=== PATIENT | female | born 1985 | race American Indian/Alaskan Native ===

== ENCOUNTER 2017-05-25 20:39 | Emergency (ER) | payer SELFPAY ==
--- NOTE | 2017-05-25 21:51 | XRay Report ---
FINAL REPORT PROCEDURE: XR CHEST ROUTINE 2V TECHNIQUE: PA and lateral chest radiographs were obtained. CPT 53168 HISTORY: cough COMPARISON: No prior studies are available for comparison. FINDINGS: Heart: Normal. Mediastinum/Vessels: Normal. Lungs/Pleural space: Normal. Bony thorax: No acute osseous abnormality. Other: IMPRESSION: Normal examination.
[2017-05-26] MEDS ORDERED: TESSALON PERLES PO ONE (02:03)
[2017-05-26] MEDS ORDERED: MOTRIN PO ONE (02:03)
[2017-05-26] MEDS ORDERED: ZESTRIL PO ONE (02:51)
[2017-05-26 02:53] VITALS: BP 152/91
--- NOTE | 2017-05-26 02:55 | Emergency Department Report ---
- General Chief Complaint: Upper Respiratory Infection Stated Complaint: COLD SX Time Seen by Provider: 05/26/17 02:02 Source: patient Mode of arrival: Ambulatory Limitations: No Limitations - History of Present Illness Initial Comments: This is a 31-year-old female nontoxic, well nourished in appearance, no acute signs of distress presents to the ED with c/o of productive cough, body aches, rhinorrhea, nasal congestion x3 days. Patient describes productive cough as yellow mucus production. Patient denies any sick contacts. Patient denies any recent travels, long car, recent hospital stays. Patient denies any calf pain or calf tenderness. Patient denies any chest pain, short of breath, fever, chills, nausea, vomiting, hemoptysis, numbness, tingling, headache or stiff neck. Patient denies any drug allergies. Patient denies any allergies. PMH includes HTN but patient stated takes Lisinopril 10 mg but missed dose today as she is out of her medication. MD Complaint: cough, rhinorrhea, nasal congestion, other (body aches) -: days(s) (3) Severity: mild Severity scale (0 -10): 8 Quality: aching Consistency: constant Improves With: nothing Worsens With: nothing Associated Symptoms: rhinorrhea, nasal congestion, cough. denies: fever, chills , myalgias, diaphoresis, headache, sore throat, stiff neck, chest pain, shortness of breath, abdominal pain, nausea, vomiting, diarrhea, dysuria, rash, confusion, right sweats, weight loss, epistaxis, hoarseness, ear pain Treatments Prior to Arrival: none - Related Data Previous Rx's Medication Instructions Recorded Last Taken Type Ranitidine HCl [Zantac] 300 mg PO QDAY #30 tablet 02/02/14 Unknown Rx Cephalexin [Keflex] 500 mg PO QID #40 capsule 02/19/17 Unknown Rx traMADol [Ultram 50 MG tab] 50 mg PO Q8HR PRN #20 tablet 02/19/17 Unknown Rx Azithromycin [Zithromax Z-GABY] 250 mg PO DAILY #6 tablet 05/26/17 Unknown Rx Benzonatate [Tessalon Perle] 100 mg PO Q6H PRN #20 capsule 05/26/17 Unknown Rx Ibuprofen [Motrin] 600 mg PO Q8H PRN #30 tablet 05/26/17 Unknown Rx Oseltamivir [Tamiflu] 75 mg PO BID #14 cap 05/26/17 Unknown Rx Allergies Allergy/AdvReac Type Severity Reaction Status Date / Time No Known Allergies Allergy Verified 02/19/17 10:54 ED Review of Systems ROS: Stated complaint: COLD SX Other details as noted in HPI Constitutional: denies: chills, fever Eyes: denies: eye pain, eye discharge, vision change ENT: denies: ear pain, throat pain Respiratory: cough. denies: shortness of breath, wheezing Cardiovascular: denies: chest pain, palpitations Endocrine: no symptoms reported Gastrointestinal: denies: abdominal pain, nausea, diarrhea Genitourinary: denies: urgency, dysuria, discharge Musculoskeletal: denies: back pain, joint swelling, arthralgia Skin: denies: rash, lesions Neurological: denies: headache, weakness, paresthesias Psychiatric: denies: anxiety, depression Hematological/Lymphatic: denies: easy bleeding, easy bruising ED Past Medical Hx - Past Medical History Previous Medical History?: Yes Hx Diabetes: Yes - Surgical History Past Surgical History?: Yes Additional Surgical History: stomach surgery when she was a baby - Social History Smoking Status: Current Every Day Smoker Substance Use Type: None - Medications Home Medications: Home Medications Medication Instructions Recorded Confirmed Last Taken Type Ranitidine HCl [Zantac] 300 mg PO QDAY #30 tablet 02/02/14 Unknown Rx Cephalexin [Keflex] 500 mg PO QID #40 capsule 02/19/17 Unknown Rx traMADol [Ultram 50 MG tab] 50 mg PO Q8HR PRN #20 tablet 02/19/17 Unknown Rx Azithromycin [Zithromax Z-GABY] 250 mg PO DAILY #6 tablet 05/26/17 Unknown Rx Benzonatate [Tessalon Perle] 100 mg PO Q6H PRN #20 capsule 05/26/17 Unknown Rx Ibuprofen [Motrin] 600 mg PO Q8H PRN #30 tablet 05/26/17 Unknown Rx Oseltamivir [Tamiflu] 75 mg PO BID #14 cap 05/26/17 Unknown Rx ED Physical Exam - General Limitations: No Limitations General appearance: alert, in no apparent distress - Head Head exam: Present: atraumatic, normocephalic - Eye Eye exam: Present: normal appearance, PERRL, EOMI Pupils: Present: normal accommodation - ENT ENT exam: Present: normal exam, normal orophraynx, mucous membranes moist, TM's normal bilaterally, normal external ear exam - Neck Neck exam: Present: normal inspection, full ROM. Absent: tenderness, meningismus, lymphadenopathy, thyromegaly - Respiratory Respiratory exam: Present: normal lung sounds bilaterally. Absent: respiratory distress, wheezes, rales, rhonchi, stridor, chest wall tenderness, accessory muscle use, decreased breath sounds, prolonged expiratory - Cardiovascular Cardiovascular Exam: Present: regular rate, normal rhythm, normal heart sounds. Absent: irregular rhythm, systolic murmur, diastolic murmur, rubs, gallop - GI/Abdominal GI/Abdominal exam: Present: soft, normal bowel sounds. Absent: distended, tenderness, guarding, rebound, rigid, diminished bowel sounds - Rectal Rectal exam: Present: deferred - Extremities Exam Extremities exam: Present: normal inspection, full ROM, normal capillary refill. Absent: tenderness, pedal edema, joint swelling, calf tenderness - Back Exam Back exam: Present: normal inspection, full ROM. Absent: tenderness, CVA tenderness (R), CVA tenderness (L), muscle spasm, paraspinal tenderness, vertebral tenderness, rash noted - Neurological Exam Neurological exam: Present: alert, oriented X3, CN II-XII intact, normal gait, reflexes normal - Psychiatric Psychiatric exam: Present: normal affect, normal mood - Skin Skin exam: Present: warm, dry, intact, normal color. Absent: rash ED Course Vital Signs 05/25/17 20:53 Temperature 98.7 F Pulse Rate 101 H Blood Pressure 177/106 O2 Sat by Pulse 99 Oximetry - Reevaluation(s) Reevaluation #1: 05/26/17 02:54 Patient is speaking in full sentences with no signs of distress noted. ED Medical Decision Making - Medical Decision Making This is a 31-year-old female that presents with upper respiratory infection, hypertension, and influenza. Patient is stable and was examined by me. Chest x -ray has been obtained and dictated by radiologist with normal exam. Patient is notified of x-ray results with no questions noted. Due to patient having symptoms of influenza and upper respiratory infection I will treat patient empirically with Tamiflu and zpak. Patient also recevied the missed dose of Lisinopril as patient stated takes 10 mg x1 daily. Patient was instructed to increase hydration, rest and take Motrin for fever episodes. Patient received Motrin and tesslone perrls in the ED. Vitals stable. Patient is nonfebrile and normal heart rate. Patient was orally hydrated and patient tolerated well known nausea or vomiting. Patient was instructed Follow-up with a primary care doctor in 3-5 days or if symptoms worsen and continue return to emergency room as soon as possible. At time time of discharge, the patient does not seem toxic or ill in appearance. No acute signs of distress noted. Patient agrees to discharge treatment plan of care. No further questions noted by the patient. Critical care attestation.: If time is entered above; I have spent that time in minutes in the direct care of this critically ill patient, excluding procedure time. ED Disposition Clinical Impression: Influenza Hypertension Qualifiers: Hypertension type: unspecified Qualified Code(s): I10 - Essential (primary) hypertension Upper respiratory infection Qualifiers: URI type: unspecified URI Qualified Code(s): J06.9 - Acute upper respiratory infection, unspecified Disposition: DC-01 TO HOME OR SELFCARE Is pt being admited?: No Does the pt Need Aspirin: No Condition: Stable Instructions: Hypertension (ED), Influenza (ED), Azithromycin (By mouth), Upper Respiratory Infection (ED), Oseltamivir (By mouth) Additional Instructions: Follow-up with a primary care doctor in 3-5 days or if symptoms worsen and continue return to emergency room as soon as possible. Increase rest, hydration and take Motrin for fever episodes. Prescriptions: Azithromycin [Zithromax Z-GABY] 250 mg PO DAILY #6 tablet Benzonatate [Tessalon Perle] 100 mg PO Q6H PRN #20 capsule PRN Reason: Cough Ibuprofen [Motrin] 600 mg PO Q8H PRN #30 tablet PRN Reason: Fever Oseltamivir [Tamiflu] 75 mg PO BID #14 cap Referrals: CAROLYN RIVERS MD [Primary Care Provider] - 3-5 Days FARNAZ PEREZ MD [Staff Physician] - 3-5 Days [facility] [Outside] - 3-5 Days [facility] [Outside] - 3-5 Days Forms: Work/School Release Form(ED)
== END 2017-05-26 03:00 | disposition home or self-care (01) ==
LOC: ED 20:39
DX: J11.1 Influenza due to unidentified influenza virus with other respiratory manifestations (principal); I10 Essential (primary) hypertension; J06.9 Acute upper respiratory infection, unspecified; E11.9 Type 2 diabetes mellitus without complications; F17.200 Nicotine dependence, unspecified, uncomplicated
CPT/HCPCS: 71046

== ENCOUNTER 2019-10-04 09:48 | Emergency (ER) | payer SELFPAY ==
[2019-10-04 10:56] LABS: Basophils # (Auto) 0.1 K/mm3 (0.0-0.1); Basophils % (Auto) 1.2 % (0.0-1.8); Eosinophils # (Auto) 0.3 K/mm3 (0.0-0.4); Hematocrit 48.2 % (30.3-42.9); Hemoglobin 16.3 gm/dl (10.1-14.3); Lymphocytes # (Auto) 1.8 K/mm3 (1.2-5.4); Lymphocytes % (Auto) 28.1 % (13.4-35.0); Mean Corpuscular HGB Conc 34 % (30-34); Mean Corpuscular Volume 84 fl (79-97); Monocytes # (Auto) 0.5 K/mm3 (0.0-0.8); Monocytes % (Auto) 8.5 % (0.0-7.3); Platelet Count 215 K/mm3 (140-440); Red Blood Count 5.76 M/mm3 (3.65-5.03); Red Cell Distribution Width 13.5 % (13.2-15.2)
--- NOTE | 2019-10-04 11:04 | Emergency Department Report ---
ED General Adult HPI - General Chief complaint: Urogenital-Female Stated complaint: GENITAL ISSUES Time Seen by Provider: 10/04/19 10:17 Source: patient Mode of arrival: Ambulatory Limitations: No Limitations - History of Present Illness Initial comments: This is a 33-year-old female who presented to the hospital because she is concerned she might have genital warts. She denies a history of HSV. She states that she has hypertension and diabetes but is not compliant with her medication for a "long time". She does not have a primary care provider. She states that she has moved to this area less than a year ago. She denies fever or chills. She complains of a genital rash but not a vaginal discharge. She denies fever chills pelvic or abdominal pain. -: Gradual, days(s) Improves with: none Worsens with: none Associated Symptoms: denies other symptoms - Related Data Previous Rx's Medication Instructions Recorded Last Taken Type Ranitidine HCl [Zantac] 300 mg PO QDAY #30 tablet 02/02/14 Unknown Rx Cephalexin [Keflex] 500 mg PO QID #40 capsule 02/19/17 Unknown Rx traMADoL [Ultram 50 MG tab] 50 mg PO Q8HR PRN #20 tablet 02/19/17 Unknown Rx Azithromycin [Zithromax Z-GABY] 250 mg PO DAILY #6 tablet 05/26/17 Unknown Rx Benzonatate [Tessalon Perle] 100 mg PO Q6H PRN #20 capsule 05/26/17 Unknown Rx Ibuprofen [Motrin] 600 mg PO Q8H PRN #30 tablet 05/26/17 Unknown Rx Oseltamivir [Tamiflu] 75 mg PO BID #14 cap 05/26/17 Unknown Rx Acyclovir [Zovirax Tab] 400 mg PO Q8H #20 tab 10/04/19 Unknown Rx Fluconazole (Nf) [Diflucan TAB] 150 mg PO ONCE #7 tablet 10/04/19 Unknown Rx Losartan/Hydrochlorothiazide 1 each PO DAILY #30 tablet 10/04/19 Unknown Rx [Losartan-Hctz 50-12.5 mg Tab] metFORMIN [Glucophage] 500 mg PO BID #60 tablet 10/04/19 Unknown Rx Allergies Allergy/AdvReac Type Severity Reaction Status Date / Time No Known Allergies Allergy Verified 02/19/17 10:54 ED Review of Systems ROS: Stated complaint: GENITAL ISSUES Other details as noted in HPI Constitutional: denies: chills, fever Eyes: denies: eye pain, eye discharge, vision change ENT: denies: ear pain, throat pain Respiratory: denies: cough, shortness of breath, wheezing Cardiovascular: denies: chest pain, palpitations Endocrine: no symptoms reported Gastrointestinal: denies: abdominal pain, nausea, diarrhea Genitourinary: as per HPI. denies: urgency, dysuria, discharge Musculoskeletal: joint swelling. denies: back pain, arthralgia Skin: denies: rash, lesions Neurological: denies: headache, weakness, paresthesias Psychiatric: denies: anxiety, depression Hematological/Lymphatic: denies: easy bleeding, easy bruising ED Past Medical Hx - Past Medical History Previous Medical History?: Yes Hx Hypertension: Yes Hx Diabetes: Yes - Surgical History Past Surgical History?: Yes Additional Surgical History: stomach surgery when she was a baby - Social History Smoking Status: Current Every Day Smoker Substance Use Type: Alcohol - Medications Home Medications: Home Medications Medication Instructions Recorded Confirmed Last Taken Type Ranitidine HCl [Zantac] 300 mg PO QDAY #30 tablet 02/02/14 Unknown Rx Cephalexin [Keflex] 500 mg PO QID #40 capsule 02/19/17 Unknown Rx traMADoL [Ultram 50 MG tab] 50 mg PO Q8HR PRN #20 tablet 02/19/17 Unknown Rx Azithromycin [Zithromax Z-GABY] 250 mg PO DAILY #6 tablet 05/26/17 Unknown Rx Benzonatate [Tessalon Perle] 100 mg PO Q6H PRN #20 capsule 05/26/17 Unknown Rx Ibuprofen [Motrin] 600 mg PO Q8H PRN #30 tablet 05/26/17 Unknown Rx Oseltamivir [Tamiflu] 75 mg PO BID #14 cap 05/26/17 Unknown Rx Acyclovir [Zovirax Tab] 400 mg PO Q8H #20 tab 10/04/19 Unknown Rx Fluconazole (Nf) [Diflucan TAB] 150 mg PO ONCE #7 tablet 10/04/19 Unknown Rx Losartan/Hydrochlorothiazide 1 each PO DAILY #30 tablet 10/04/19 Unknown Rx [Losartan-Hctz 50-12.5 mg Tab] metFORMIN [Glucophage] 500 mg PO BID #60 tablet 10/04/19 Unknown Rx ED Physical Exam - General Limitations: No Limitations, Physical Limitation General appearance: alert, in no apparent distress, obese - Head Head exam: Present: atraumatic, normocephalic - Eye Eye exam: Present: normal appearance. Absent: scleral icterus - ENT ENT exam: Present: mucous membranes moist - Neck Neck exam: Present: normal inspection. Absent: tenderness, meningismus - Respiratory Respiratory exam: Present: normal lung sounds bilaterally. Absent: respiratory distress - Cardiovascular Cardiovascular Exam: Present: regular rate, normal rhythm. Absent: systolic murmur, diastolic murmur, rubs, gallop - GI/Abdominal GI/Abdominal exam: Present: soft, normal bowel sounds. Absent: distended, tenderness, guarding, rebound, rigid - External exam: Present: other (There appeared to be the root vesicles consistent with HSV. In addition there is erythema and findings consistent with monilial infection. ) - Extremities Exam Extremities exam: Present: normal inspection - Back Exam Back exam: Present: normal inspection - Neurological Exam Neurological exam: Present: alert, oriented X3 - Psychiatric Psychiatric exam: Present: normal affect, normal mood - Skin Skin exam: Present: warm, dry, intact, normal color. Absent: rash ED Course Vital Signs 10/04/19 10/04/19 10/04/19 09:51 10:25 10:30 Temperature 98.3 F Pulse Rate 90 Respiratory 20 Rate Blood Pressure 196/123 155/82 Blood Pressure [Left] O2 Sat by Pulse 99 98 96 Oximetry 10/04/19 10/04/19 10:32 12:05 Temperature Pulse Rate 96 H 82 Respiratory 16 16 Rate Blood Pressure Blood Pressure 155/84 162/96 [Left] O2 Sat by Pulse 97 97 Oximetry ED Medical Decision Making - Lab Data Result diagrams: 10/04/19 10:37 10/04/19 10:37 Laboratory Results - last 24 hr 10/04/19 10/04/19 10:37 10:37 WBC 6.3 RBC 5.76 H Hgb 16.3 H Hct 48.2 H MCV 84 MCH 28 MCHC 34 RDW 13.5 Plt Count 215 Lymph % (Auto) 28.1 [place] % (Auto) 8.5 H Eos % (Auto) 4.0 Baso % (Auto) 1.2 Lymph # 1.8 [place] # 0.5 Eos # 0.3 Baso # 0.1 Seg Neutrophils % 58.2 Seg Neutrophils # 3.7 Sodium 137 Potassium 4.2 Chloride 101.0 Carbon Dioxide 25 Anion Gap 15 BUN 9 Creatinine 0.7 Estimated GFR > 60 BUN/Creatinine Ratio 13 Glucose 322 H Calcium 8.9 Critical care attestation.: If time is entered above; I have spent that time in minutes in the direct care of this critically ill patient, excluding procedure time. ED Disposition Clinical Impression: Hypertension, uncontrolled, Yeast vaginitis, Herpes simplex infection Hyperglycemia due to type 2 diabetes mellitus Qualifiers: Diabetes mellitus medical terminologist insulin use: without medical terminologist use Qualified Code(s): E11.65 - Type 2 diabetes mellitus with hyperglycemia Disposition: TO HOME OR SELFCARE Is pt being admited?: No Does the pt Need Aspirin: No Condition: Stable Instructions: Diabetes Mellitus Type 2 in Adults (ED), Hypertension (ED), Vulvovaginal Candidiasis (ED), Genital Herpes Simplex (ED) Additional Instructions: It is very important that you follow-up with the [facility]. You also can get assistance at the [facility]. Emergency department any acute change or problem. Rx as directed. Prescriptions: Fluconazole (Nf) [Diflucan TAB] 150 mg PO ONCE #7 tablet metFORMIN [Glucophage] 500 mg PO BID #60 tablet Losartan/Hydrochlorothiazide [Losartan-Hctz 50-12.5 mg Tab] 1 each PO DAILY #30 tablet Acyclovir [Zovirax Tab] 400 mg PO Q8H #20 tab Referrals: PRIMARY CAREMD [Primary Care Provider] - 3-5 Days [facility] [Provider Group] - 3-5 Days [facility] [Outside] - 3-5 Days Time of Disposition: 12:22
[2019-10-04 11:07] LABS: BUN/Creatinine Ratio 13; Blood Urea Nitrogen 9 mg/dL (7-17); Calcium 8.9 mg/dL (8.4-10.2); Hemolysis Index 5
[2019-10-04 12:06] VITALS: BP 162/96
[2019-10-04 12:54] LABS: Bilirubin,Urine NEG (Negative); Blood,Urine SM (Negative); Color,Urine Straw (Yellow); Urobilinogen,Urine < 2.0 mg/dL (<2.0)
[2019-10-04 12:55] LABS: Protein,Urine >2000 mg dL mg/dL (Negative)
[2019-10-04 13:00] LABS: HCG Qualitative,Urine Negative (Negative)
[2019-10-04 13:02] LABS: Amphetamine Screen,Urine PRESUMPTIVE NEGATIVE; Benzodiazepines Screen,Urine PRESUMPTIVE NEGATIVE; Cocaine Screen,Urine PRESUMPTIVE NEGATIVE; Methadone Screen,Urine PRESUMPTIVE NEGATIVE; Opiate Screen,Urine PRESUMPTIVE NEGATIVE
[2019-10-04 13:38] LABS: Cannabinoid Screen,Urine PRESUMPTIVE POSITIVE
== END 2019-10-04 12:31 | disposition home or self-care (01) ==
LOC: ED 09:48
DX: B00.9 Herpesviral infection, unspecified (principal); B37.3 Candidiasis of vulva and vagina; E11.65 Type 2 diabetes mellitus with hyperglycemia; I10 Essential (primary) hypertension; F17.200 Nicotine dependence, unspecified, uncomplicated; Z98.890 Other specified postprocedural states; Z79.899 Other long term (current) drug therapy
CPT/HCPCS: 36415; 80048; 80307; 81001; 81025; 85025; 99283

== ENCOUNTER 2019-12-14 11:02 | Emergency (ER) | payer SELFPAY ==
[2019-12-14 11:16] VITALS: BP 217/118
--- NOTE | 2019-12-14 11:48 | Emergency Department Report ---
Chief Complaint: Extremity Injury, Lower Stated Complaint: BACK AND HIP PAIN Time Seen by Provider: 12/14/19 11:35 - HPI History of Present Illness: pt is a 34 yo female who presents to the ED with c/o right lower back pain that began a few months ago and exacerbated while walking up hill last night to go to work and she had to go home. she states that she has pain with movement but the pain resolves with rest. she denies any fall or injury. she denies any urinary sx, numbness, weakness, bowel or bladder incontinence, n/v/d, fever. no hx of cancer or steroid use. PMHx HTN and DM. no allergies to meds. initial vitals with mild tachycardia and elevated BP repeat vitals HR 90 BP185/114 pt states he has not taken his losartan in 3 days, he states he just has not taken it, he states that he does have it at home and does not need a refill on exam: Non toxic appearing, no acute distress atraumatic, normocephalic normal appearance of the eyes, PERRL, EOMI, no periorbital edema or ecchymosis moist mucus membranes regular heart rate and rhythm, no gallops, no rubs, no murmurs breath sounds are clear bilaterally, no w/r/r right sided lumbar paraspinal muscular ttp, no midline C-spine, T-spine, L-spine ttp, no step offs, no deformities A&O x4, no focal neuro deficit, 5/5 muscle strength in the BUE/BLE, sensation intact throughout, normal gait skin is warm, dry, intact examination appears most consistent with low back strain he has no red flag warning signs of back pain, no trauma, no unexplained weight loss, no neuro deficits, age is not greater than 50, no fever, no IV drug use, no steroid use, no history of cancer no trauma, no midline ttp, no neuro deficits pt is not complaining of any symptoms related to elevated BP discussed supportive care and symptomatic treatment with pt pt given multiple resources advised pt may alternate tylenol or ibuprofen as needed for discomfort. may use ice pack, heating pad, rest, epsom salt bath. may use tiger balm or icy hot. may do back stretching. follow up with a primary care doctor. follow up with an orthopedic doctor. please take your blood pressure medication once you return home. please increase your water intake, eat a low sodium diet, incorporate 30- 60 minutes of daily aerobic exercise. return to the emergency room for any new or worsening symptoms. risks associated with alf uncontrolled blood pressure include heart problems, kidney problems, vision problems, stroke, etc. Medical screening examination performed and there is no threat to life or limb at this time - Exam Vital Signs: Vital Signs 12/14/19 11:15 Temperature 98.2 F Pulse Rate 105 H Respiratory 16 Rate Blood Pressure 217/118 [Left] O2 Sat by Pulse 98 Oximetry MSE screening note: Focused history and physical exam performed. ED Disposition for MSE Clinical Impression: Elevated blood pressure reading Low back strain Qualifiers: Encounter type: initial encounter Qualified Code(s): S39.012A - Strain of muscle, fascia and tendon of lower back, initial encounter Disposition: MED SCREENING EXAM-LEFT Is pt being admited?: No Does the pt Need Aspirin: No Condition: Stable Instructions: Muscle Strain (ED), Low Back Strain (ED), Chronic Hypertension (ED) Additional Instructions: may alternate tylenol or ibuprofen as needed for discomfort. may use ice pack, heating pad, rest, epsom salt bath. may use tiger balm or icy hot. may do back stretching. follow up with a primary care doctor. follow up with an orthopedic doctor. please take your blood pressure medication once you return home. please increase your water intake, eat a low sodium diet, incorporate 30-60 minutes of daily aerobic exercise. return to the emergency room for any new or worsening symptoms. 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 Referrals: [facility] [Provider Group] - 2-3 Days [facility] [Provider Group] - 2-3 Days [facility] [Outside] - 2-3 Days DARBY BABIN MD [Staff Physician] - 2-3 Days OBEY ARORA MD [Staff Physician] - 2-3 Days Time of Disposition: 11:49 Print Language: NAMIBIAN
== END 2019-12-14 11:39 | disposition left against medical advice (07) ==
LOC: ED 11:02
DX: M54.9 Dorsalgia, unspecified (principal); Z53.21 Procedure and treatment not carried out due to patient leaving prior to being seen by health care provider

== ENCOUNTER 2020-08-06 11:24 | Emergency (ER) | payer SELFPAY ==
[2020-08-06] MEDS ORDERED: IBUPROFEN 600 MG TAB PO ONE (12:18)
--- NOTE | 2020-08-06 12:22 | Emergency Department Report ---
ED Headache HPI - General Chief Complaint: Headache Stated Complaint: HEADACHE - History of Present Illness Initial Comments: 34-year-old -[place] female presents to the emergency room for headache that started 3 days ago. Patient states is located in her frontal area feels like her sinus infection she had in the past. Patient states she had vomited 1 time 2 days ago. She states that she feels much better today than she has previous days. She denies any runny nose does admit to a cough. Patient states is been taking Tylenol and Tylenol Cold and flu without much resolution of comfort. Patient states she has not been evaluated for Covid. It was noted that patient's blood pressure was elevated at 196/101. Timing/Duration: other (3 days) Quality: moderate Head Injury Location: frontal Recent Head Trauma: occasional headaches Associated Symptoms: denies symptoms Allergies/Adverse Reactions: Allergies No Known Allergies Allergy (Verified 08/06/20 12:05) Home Medications: Ambulatory Orders Ranitidine HCl [Zantac] 300 mg PO QDAY #30 tablet 02/02/14 cephALEXin [Keflex] 500 mg PO QID #40 capsule 02/19/17 traMADoL [Ultram 50 MG tab] 50 mg PO Q8HR PRN #20 tablet 02/19/17 Azithromycin [Zithromax Z-GABY] 250 mg PO DAILY #6 tablet 05/26/17 Benzonatate [Tessalon Perle] 100 mg PO Q6H PRN #20 capsule 05/26/17 Ibuprofen [Motrin] 600 mg PO Q8H PRN #30 tablet 05/26/17 Oseltamivir [Tamiflu] 75 mg PO BID #14 cap 05/26/17 Acyclovir [Zovirax Tab] 400 mg PO Q8H #20 tab 10/04/19 Fluconazole (Nf) [Diflucan TAB] 150 mg PO ONCE #7 tablet 10/04/19 Losartan/Hydrochlorothiazide [Losartan-Hctz 50-12.5 mg Tab] 1 each PO DAILY #30 tablet 10/04/19 metFORMIN [Glucophage] 500 mg PO BID #60 tablet 10/04/19 amLODIPine 5 mg PO DAILY #30 tab 08/06/20 ED Review of Systems ROS: Stated complaint: HEADACHE Other details as noted in HPI Comment: All other systems reviewed and negative ED Past Medical Hx - Past Medical History Hx Hypertension: Yes Hx Diabetes: Yes - Surgical History Additional Surgical History: stomach surgery when she was a baby - Social History Smoking Status: Current Every Day Smoker Substance Use Type: None - Medications Home Medications: Home Medications Medication Instructions Recorded Confirmed Last Taken Type Ranitidine HCl [Zantac] 300 mg PO QDAY #30 tablet 02/02/14 Unknown Rx cephALEXin [Keflex] 500 mg PO QID #40 capsule 02/19/17 Unknown Rx traMADoL [Ultram 50 MG tab] 50 mg PO Q8HR PRN #20 tablet 02/19/17 Unknown Rx Azithromycin [Zithromax Z-GABY] 250 mg PO DAILY #6 tablet 05/26/17 Unknown Rx Benzonatate [Tessalon Perle] 100 mg PO Q6H PRN #20 capsule 05/26/17 Unknown Rx Ibuprofen [Motrin] 600 mg PO Q8H PRN #30 tablet 05/26/17 Unknown Rx Oseltamivir [Tamiflu] 75 mg PO BID #14 cap 05/26/17 Unknown Rx Acyclovir [Zovirax Tab] 400 mg PO Q8H #20 tab 10/04/19 Unknown Rx Fluconazole (Nf) [Diflucan TAB] 150 mg PO ONCE #7 tablet 10/04/19 Unknown Rx Losartan/Hydrochlorothiazide 1 each PO DAILY #30 tablet 10/04/19 Unknown Rx [Losartan-Hctz 50-12.5 mg Tab] metFORMIN [Glucophage] 500 mg PO BID #60 tablet 10/04/19 Unknown Rx amLODIPine 5 mg PO DAILY #30 tab 08/06/20 Unknown Rx ED Physical Exam - General Limitations: No Limitations General appearance: alert, in no apparent distress - Head Head exam: Present: atraumatic, normocephalic - Eye Eye exam: Present: normal appearance - ENT ENT exam: Present: mucous membranes moist, other (Frontal head tenderness) - Neck Neck exam: Present: normal inspection - Respiratory Respiratory exam: Present: normal lung sounds bilaterally. Absent: accessory muscle use - Cardiovascular Cardiovascular Exam: Present: regular rate - Extremities Exam Extremities exam: Present: normal inspection, pedal edema - Back Exam Back exam: Present: normal inspection - Neurological Exam Neurological exam: Present: alert, oriented X3 - Expanded Neurological Exam Expanded Cranial nerves: EOM's Intact: Normal, Gag Reflex: Normal, Tongue Deviation: Normal, Nystagmus: Normal, Facial Sensation: Normal, Facial Palsy with Forehead Movement: Normal, Facial Palsy without Forehead Movement: Normal Cerebellar function: Finger to Nose: Normal, Heel to [place]: Normal, Romberg: Normal Upper motor neuron: Arnold Neglect: Normal, Pronator Drift: Normal, Babinski Sign: Normal, Sensory Extinction: Normal Sensory exam: Upper Extremity Light Touch: Normal, Upper Extremity Pin Prick: Normal, Upper Extremity Temperature: Normal, UE 2 Point Discrimination: Normal, Lower Extremity Light Touch: Normal, Lower Extremity Pin Prick: Normal, Lower Extremity Temperature: Normal, LE 2 Point Discrimination: Normal Motor strength exam: RUE: 5, LUE: 5, RLE: 5, LLE: 5 Best Eye Response ([place]): (4) open spontaneously Best Motor Response ([place]): (6) obeys commands Best Verbal Response ([place]): (5) oriented [place] Total: 15 - Psychiatric Psychiatric exam: Present: normal affect, normal mood - Skin Skin exam: Present: warm, dry, intact, normal color. Absent: rash ED Course - Reevaluation(s) Reevaluation #1: 08/06/20 13:24 Patient reports that her headache feels much better. Critical care attestation.: If time is entered above; I have spent that time in minutes in the direct care of this critically ill patient, excluding procedure time. ED Disposition Clinical Impression: Severely overweight Headache Qualifiers: Headache type: unspecified Headache chronicity pattern: acute headache Intractability: intractable Qualified Code(s): R51.9 - Headache, unspecified Hypertension Qualifiers: Hypertension type: essential hypertension Qualified Code(s): I10 - Essential (primary) hypertension Disposition: - TO HOME OR SELFCARE Is pt being admited?: No Does the pt Need Aspirin: No Condition: Stable Instructions: Hypertension (ED), Preventing Hypertension, Hypertension, Adult, [id number] Additional Instructions: Try ibuprofen 6 to 800 mg every 6-8 hours. Flonase which is [id number] nasal spray take as directed on box. Please take amlodipine for hypertension. It is very important for you to follow-up with a primary care provider as you have risk factors. I have listed several below for your convenience. Prescriptions: amLODIPine 5 mg PO DAILY #30 tab Referrals: PRIMARY CARE, [Primary Care Provider] - 3-5 Days [facility] [Provider Group] - 3-5 Days CARBUCCIA,DARBY, MD [Staff Physician] - 3-[address] [facility] [Outside] - 3-5 Days [facility] [place] [facility] [place] - 3-5 Days Forms: Work/School Release Form(ED)
[2020-08-06 13:26] VITALS: BP 196/109
== END 2020-08-06 13:51 | disposition home or self-care (01) ==
LOC: ED 11:24
DX: I10 Essential (primary) hypertension (principal); E66.3 Overweight; E11.9 Type 2 diabetes mellitus without complications; Z79.899 Other long term (current) drug therapy; F17.200 Nicotine dependence, unspecified, uncomplicated
CPT/HCPCS: 99281